=== PATIENT | male | born 1950 | race Asian ===

== ENCOUNTER 2018-07-21 14:47 | Emergency (ER) | payer BC, OTHER ==
[~2018-07-21] VITALS: Ht 175.3 cm; Wt 66.2 kg
[2018-07-21 14:49] VITALS: Ht 175.3 cm; Wt 66.2 kg
[2018-07-21 15:59] LABS: BASOPHIL % 0.3 % (0-2); PLATELET COUNT 211 x10^3mcL (130-400); RED CELL DISTRIBUTION WIDTH 12.8 % (11.5-14.5)
[2018-07-21 16:00] LABS: CALCIUM 8.6 mg/dL (8.5-10.1); CARBON DIOXIDE 26.8 mmol/L (21-32); CHLORIDE SERUM 103 mmol/L (98-107); CREATININE SERUM 0.8 mg/dL (0.7-1.3); GFR1 > 60 mL/min; GLUCOSE SERUM 99 mg/dL (74-106); POTASSIUM SERUM 3.2 mmol/L (3.5-5.1); SODIUM SERUM 139 mmol/L (136-145)
[2018-07-21 16:11] LABS: ALBUMIN 3.8 g/dL (3.4-5.0); ALKALINE PHOSPHATASE 43 U/L (46-116); ALT/SGPT 18 U/L (16-63); AST/SGOT 17 U/L (15-37); HDL CHOLESTEROL 55 mg/dL (40-60); LIPASE 115 IU/L (73-393); T4(THYROXINE) 9.1 ug/dL (4.7-13.3); TOTAL PROTEIN, SERUM 7.5 g/dL (6.4-8.2)
[2018-07-21 16:18] VITALS: BP 136/85
[2018-07-21 16:37] LABS: CHOLESTEROL 209 mg/dL (<200)
== END 2018-07-21 16:18 | disposition short-term general hospital (02) ==
LOC: ED 14:47
PROVIDERS: Emergency Medicine
DX: I61.9 Nontraumatic intracerebral hemorrhage, unspecified (principal); I10 Essential (primary) hypertension; I25.10 Atherosclerotic heart disease of native coronary artery without angina pectoris; E78.00 Pure hypercholesterolemia, unspecified; Z95.818 Presence of other cardiac implants and grafts
CPT/HCPCS: 82962; 83880; J1100; J3490